=== PATIENT | female | born 1990 | race African-American/Black ===

== ENCOUNTER 2021-03-14 08:39 | Emergency (ER) | payer BC ==
[~2021-03-14] VITALS: Ht 154.9 cm; Wt 68.0 kg
[2021-03-14] MEDS ORDERED: IBUPROFEN 600MG TABLET PO ONE (09:30)
[2021-03-14] MEDS ORDERED: TOPUD MT (11:33)
[2021-03-14] MEDS ORDERED: SKEL800 MT (11:33)
[2021-03-14 11:59] VITALS: BP 128/77
== END 2021-03-14 12:01 | disposition home or self-care (01) ==
LOC: ER 08:39
DX: M54.2 Cervicalgia (principal); Z79.899 Other long term (current) drug therapy
CPT/HCPCS: 70450; 71045; 72125; 72170; 73552; 81025; 99284; J7040; Z7610